=== PATIENT | male | born 1970 | race African-American/Black ===

== ENCOUNTER 2024-03-26 00:17 | Emergency (ER) | payer OTHER ==
[2024-03-26] MEDS ORDERED: Fluorescein Opthalmic Strip ONE (02:21)
[2024-03-26] MEDS ORDERED: Tetracaine 0.5% PF 4 ML BOT ONE (02:21)
[2024-03-26] MEDS ORDERED: Erythromycin Base 0.5% Oint 1 GM TUBE ONE (02:33)
== END 2024-03-26 02:37 | disposition home or self-care (01) ==
LOC: CSHERS 00:17
DX: H10.9 Unspecified conjunctivitis (principal); F17.210 Nicotine dependence, cigarettes, uncomplicated
CPT/HCPCS: 99283